=== PATIENT | female | born 1950 | race Caucasian/White ===

== ENCOUNTER 2017-12-17 17:24 | Emergency (ER) | payer OTHER ==
[~2017-12-17] VITALS: Ht 167.6 cm; Wt 129.6 kg
[2017-12-17 18:33] LABS: BASOPHILS % (AUTO) 0.6 % (0-1); EOSINOPHILS # (AUTO) 0.3 X10'3 (0-0.9); EOSINOPHILS % (AUTO) 4.9 % (0-6); HEMATOCRIT 23.5 % (35.0-45.0); HEMOGLOBIN 7.2 g/dl (12.0-16.0); LYMPHOCYTES # (AUTO) 1.4 X10'3 (1.1-4.8); MEAN CORPUSCULAR HEMOGLOBIN 19.1 PG (27.0-31.0); MEAN CORPUSCULAR HGB CONC 30.6 % (33.0-36.5); MEAN CORPUSCULAR VOLUME 62.4 FL (78-98); MEAN PLATELET VOLUME 8.4 FL (7.4-10.4); MONOCYTES # (AUTO) 0.4 X10'3 (0-0.9); NEUTROPHILS # (AUTO) 3.1 X10'3 (1.8-7.7); NEUTROPHILS % (AUTO) 59.5 % (42-75); PLATELET COUNT 96 X10'3 (140-440); RED BLOOD COUNT 3.76 X10'6 (4.20-5.60); RED CELL DISTRIBUTION WIDTH 20.2 % (11.5-14.5); WHITE BLOOD COUNT 5.3 X10'3 (4.5-11.0)
[2017-12-17 18:42] LABS: INR 1.1 INR; PARTIAL THROMBOPLASTIN TIME 24 SECONDS (22-32); PROTHROMBIN TIME 11.3 SECONDS (9.0-12.0)
[2017-12-17 18:46] LABS: ALANINE AMINOTRANSFERASE 27 U/L (12-78); ALBUMIN 3.2 G/DL (3.4-5.0); ALKALINE PHOSPHATASE 91 IU/L (46-116); ANION GAP 12 (8-16); ASPARTATE AMINO TRANSFERASE 27 U/L (10-37); BILIRUBIN,TOTAL 0.7 MG/DL (0.1-1.0); BLOOD UREA NITROGEN 25 MG/DL (7-18); BUN/CREATININE RATIO 21.9 (6.6-38.0); CALCIUM 8.6 MG/DL (8.5-10.1); CHLORIDE 103 MMOL/L (99-107); CREATININE 1.14 MG/DL (0.40-0.90); GLUCOSE 173 MG/DL (70-104); POTASSIUM 4.2 MMOL/L (3.5-5.1); SODIUM 138 MMOL/L (135-145); TOTAL CARBON DIOXIDE 23.1 MMOL/L (24-32); TOTAL PROTEIN 6.5 G/DL (6.4-8.2); eGFR 48 ML/MIN
[2017-12-17] MEDS ORDERED: ESTRADIOL VALERATE 20 MG/ML IM ONE (23:20)
[2017-12-17] MEDS ORDERED: normal saline 1000ml 1,000 ML IV ONE (23:25)
[2017-12-18] VITALS (10 sets, daily range): BP systolic 128–156; BP diastolic 44–103
[2017-12-18 00:40] LABS: OCCULT BLOOD STOOL NEGATIVE (Neg)
== END 2017-12-18 03:57 | disposition home or self-care (01) ==
LOC: ER 17:25
DX: D64.9 Anemia, unspecified (principal); N93.8 Other specified abnormal uterine and vaginal bleeding; I10 Essential (primary) hypertension; E78.5 Hyperlipidemia, unspecified; E11.9 Type 2 diabetes mellitus without complications; K21.9 Gastro-esophageal reflux disease without esophagitis; Z88.0 Allergy status to penicillin; Z88.2 Allergy status to sulfonamides
CPT/HCPCS: 36415; 71045; 80053; 82272; 85025; 85610; 85730; 86885; 86900; 86901; 86920; 93005; 99285; J7030; P9016; J1380

== ENCOUNTER 2018-08-11 15:21 | Inpatient (IN) | payer OTHER ==
[~2018-08-11] VITALS: Ht 167.6 cm; Wt 141.1 kg
[2018-08-11] MEDS ORDERED: normal saline 1000ML IV soln IV ONE (15:40)
[2018-08-11 16:13] LABS: BASOPHILS % (AUTO) 0.3 % (0-1); EOSINOPHILS # (AUTO) 0.2 X10'3 (0-0.9); EOSINOPHILS % (AUTO) 3.5 % (0-6); HEMATOCRIT 33.8 % (35.0-45.0); HEMOGLOBIN 11.1 g/dl (12.0-16.0); LYMPHOCYTES # (AUTO) 0.8 X10'3 (1.1-4.8); LYMPHOCYTES % (AUTO) 13.7 % (21-51); MEAN CORPUSCULAR HEMOGLOBIN 29.8 PG (27.0-31.0); MEAN CORPUSCULAR HGB CONC 32.8 % (33.0-36.5); MEAN CORPUSCULAR VOLUME 90.9 FL (78-98); MONOCYTES # (AUTO) 0.4 X10'3 (0-0.9); NEUTROPHILS # (AUTO) 4.4 X10'3 (1.8-7.7); NEUTROPHILS % (AUTO) 75.5 % (42-75); PLATELET COUNT 89 X10'3 (140-440); RED BLOOD COUNT 3.72 X10'6 (4.20-5.60); WHITE BLOOD COUNT 5.9 X10'3 (4.5-11.0)
[2018-08-11] MEDS ORDERED: morphine 4 MG/ML inj SYRINge IV ONE (16:25)
[2018-08-11 16:28] LABS: ALANINE AMINOTRANSFERASE 38 U/L (12-78); ALBUMIN 2.7 G/DL (3.4-5.0); ALBUMIN/GLOBULIN RATIO 0.7 (1.1-1.5); ALKALINE PHOSPHATASE 121 IU/L (46-116); ANION GAP 8 (8-16); ASPARTATE AMINO TRANSFERASE 37 U/L (10-37); BILIRUBIN,TOTAL 1.8 MG/DL (0.1-1.0); BLOOD UREA NITROGEN 15 MG/DL (7-18); BUN/CREATININE RATIO 16.5 (6.6-38.0); CALCIUM 8.7 MG/DL (8.5-10.1); CHLORIDE 102 MMOL/L (99-107); CREATININE 0.91 MG/DL (0.40-0.90); GLUCOSE 179 MG/DL (70-104); POTASSIUM 3.1 MMOL/L (3.5-5.1); SODIUM 140 MMOL/L (135-145); TOTAL CARBON DIOXIDE 30.5 MMOL/L (24-32); TOTAL PROTEIN 6.4 G/DL (6.4-8.2); eGFR 61 ML/MIN
[2018-08-11] MEDS ORDERED: CefTRIAXone 2gm/D5W 50ml 50 ML IV ONE (16:45)
--- NOTE | 2018-08-11 16:57 | NUR ---
SECOND BLOOD CULTURE DRAWN
[2018-08-11] MEDS ORDERED: potassium Cl oral solution 20 MEQ/15 ML PO ONE (17:00)
[2018-08-11 17:02] LABS: CLARITY,URINE SLIGHTLY CLOUDY (Clear); COLOR,URINE YELLOW (Yellow); GLUCOSE, URINE >=1000 mg/dl (Neg); KETONES,URINE NEGATIVE (Neg); LEUKOCYTE ESTERASE ,URINE TRACE (Neg); NITRITES, URINE NEGATIVE (Neg); OCCULT BLOOD,URINE SMALL (Neg); PROTEIN,URINE 30 mg/dl (Neg)
[2018-08-11] MEDS ORDERED: LOSA25TA96 PO (17:03)
[2018-08-11] MEDS ORDERED: SIMV20TA5 PO (17:03)
[2018-08-11] MEDS ORDERED: PANT40TA4 PO (17:03)
[2018-08-11] MEDS ORDERED: CARB15DR95 OP (17:03)
[2018-08-11] MEDS ORDERED: BUPR150T8 PO (17:03)
[2018-08-11] MEDS ORDERED: MELO-102 PO (17:03)
[2018-08-11] MEDS ORDERED: HYDR25TA4 PO (17:03)
[2018-08-11] MEDS ORDERED: ZOLP5TAB8 PO (17:03)
[2018-08-11] MEDS ORDERED: BUDE10.2 INH (17:03)
[2018-08-11] MEDS ORDERED: ARIP5TAB4 PO (17:03)
[2018-08-11] MEDS ORDERED: HALO15OI4 (17:03)
[2018-08-11] MEDS ORDERED: INSU100C4 SQ (17:03)
[2018-08-11] MEDS ORDERED: EMPA25TA PO (17:03)
[2018-08-11] MEDS ORDERED: LEVO75TA PO (17:03)
[2018-08-11] MEDS ORDERED: IPRA3AMP31 IH (17:03)
[2018-08-11] MEDS ORDERED: ATENOL PO (17:03)
[2018-08-11] MEDS ORDERED: METF750T2 PO ×2 (17:03)
[2018-08-11] MEDS ORDERED: CITA-278 PO (17:03)
[2018-08-11] MEDS ORDERED: INSU100V12 SQ (17:03)
[2018-08-11] MEDS ORDERED: ARIP10TA17 PO (17:03)
[2018-08-11] MEDS ORDERED: GABA-532 PO ×2 (17:03)
[2018-08-11] MEDS ORDERED: MONVCR VG (17:03)
[2018-08-11] MEDS ORDERED: TRAM50TA2 PO (17:03)
[2018-08-11 17:04] LABS: UA COLLECTION TYPE CLN CATCH MIDSTREAM
[2018-08-11 17:16] LABS: BACTERIA,URINE 2+ /HPF (Neg); RBC,URINE 0-2 /HPF (0-2); SQUAMOUS EPITHELIAL CELL,UR MANY /LPF (FEW); YEAST FEW /HPF (NEGATIVE)
[2018-08-11] MEDS ORDERED: magnesium hydroxide 30ml (MOM) UD suspension PO PRN (17:25)
[2018-08-11] MEDS ORDERED: dextrose 50%-water 50ml dispensing syringe IV PRN ×2 (17:25)
[2018-08-11] MEDS ORDERED: potassium Cl 40MEQ/NS 500ml 500 ML IV PRN ×2 (17:25)
[2018-08-11] MEDS ORDERED: HYDROcodone/acetaminophen 10/325mg tab PO PRN (17:25)
[2018-08-11] MEDS ORDERED: dextrose ORAL solution 15 GM/59 ML bottle PO PRN ×2 (17:25)
[2018-08-11] MEDS ORDERED: glucagon, human recombinant 1mg kit SUBCUT PRN (17:25)
[2018-08-11] MEDS ORDERED: magnesium 4gm in 100ml NS 100 ML IV PRN (17:25)
[2018-08-11] MEDS ORDERED: magnesium 2GM in 50ml NS 50 ML IV PRN (17:25)
[2018-08-11] MEDS ORDERED: MESSAGE TO PHARMACY PO ONE (17:25)
[2018-08-11] MEDS ORDERED: mag hydrox/Alum hydrox/simeth 30ml oral suspension PO PRN (17:25)
[2018-08-11] MEDS ORDERED: magnesium Cl slow-release 64mg tablet PO PRN (17:25)
[2018-08-11] MEDS ORDERED: potassium Cl 20 mEq SR tablet PO PRN (17:25)
[2018-08-11] MEDS ORDERED: acetaminophen 325mg tablet PO PRN ×2 (17:25)
[2018-08-11] MEDS ORDERED: ondansetron/PF 4mg/2ml inj IV PRN (17:25)
[2018-08-11] MEDS ORDERED: morphine 4 MG/ML inj SYRINge IV PRN ×2 (17:25)
[2018-08-11 18:00] LABS: HEMOGLOBIN A1C 6.4 % (4.5-6.2)
[2018-08-11] MEDS: lactobacillus rhamnosus 10,000 MMU CELLS/CAPSULE PO SCH (20:16)
[2018-08-11] MEDS ORDERED: traMADol 50MG tablet PO PRN (20:30)
[2018-08-11] MEDS ORDERED: ipratropium/albuterol 3ml nebule NEB PRN (20:35)
[2018-08-11 20:45] VITALS: BP 148/57
[2018-08-11] MEDS ORDERED: CARBOXYMETHYLCELLULOSE SODIUM 15 ML DROPS EACHEYE SCH (21:00)
[2018-08-11 23:00] VITALS: BP_SYST 114; BP_SYST 169; BP_DIAS 45; BP_DIAS 77
[2018-08-11] MEDS: ipratropium/albuterol 3ml nebule NEB SCH (23:00)
[2018-08-11] MEDS: atorvastatin 10mg tablet PO SCH (23:28)
[2018-08-11] MEDS: gabapentin 300mg capsule PO SCH (23:29)
[2018-08-11] MEDS: insulin glargine (Lantus) pen - multi-dose SQ SCH (23:30)
[2018-08-11] MEDS: miconazole nitrate 2% 45gm VAG cream VG SCH (23:31)
[2018-08-12] MEDS: zolpidem 5mg tablet PO PRN ×2 (00:44→20:55)
[2018-08-12] MEDS: HYDROcodone/acetaminophen 5mg/325mg tablet PO PRN ×2 (00:46→20:55)
[2018-08-12 03:00] VITALS: BP 114/45
[2018-08-12 04:00] LABS: BASOPHILS % (AUTO) 0.5 % (0-1); EOSINOPHILS # (AUTO) 0.3 X10'3 (0-0.9); EOSINOPHILS % (AUTO) 5.2 % (0-6); HEMATOCRIT 32.7 % (35.0-45.0); HEMOGLOBIN 10.5 g/dl (12.0-16.0); LYMPHOCYTES # (AUTO) 1.1 X10'3 (1.1-4.8); LYMPHOCYTES % (AUTO) 20.6 % (21-51); MEAN CORPUSCULAR HEMOGLOBIN 29.1 PG (27.0-31.0); MEAN CORPUSCULAR HGB CONC 32.3 % (33.0-36.5); MEAN CORPUSCULAR VOLUME 90.3 FL (78-98); MEAN PLATELET VOLUME 9.1 FL (7.4-10.4); MONOCYTES # (AUTO) 0.5 X10'3 (0-0.9); MONOCYTES % (AUTO) 9.5 % (2-12); NEUTROPHILS # (AUTO) 3.5 X10'3 (1.8-7.7); NEUTROPHILS % (AUTO) 64.2 % (42-75); PLATELET COUNT 92 X10'3 (140-440); RED BLOOD COUNT 3.62 X10'6 (4.20-5.60); RED CELL DISTRIBUTION WIDTH 18.5 % (11.5-14.5); WHITE BLOOD COUNT 5.4 X10'3 (4.5-11.0)
[2018-08-12 04:11] LABS: ALBUMIN 2.5 G/DL (3.4-5.0); ANION GAP 9 (8-16); BLOOD UREA NITROGEN 14 MG/DL (7-18); BUN/CREATININE RATIO 17.5 (6.6-38.0); CALCIUM 8.2 MG/DL (8.5-10.1); CHLORIDE 104 MMOL/L (99-107); GLUCOSE 114 MG/DL (70-104); MAGNESIUM 1.6 MG/DL (1.5-2.4); POTASSIUM 3.3 MMOL/L (3.5-5.1); SODIUM 139 MMOL/L (135-145); TOTAL CARBON DIOXIDE 26.4 MMOL/L (24-32); eGFR 71 ML/MIN
[2018-08-12 06:00] VITALS: BP 167/70
[2018-08-12] MEDS: ipratropium/albuterol 3ml nebule NEB SCH ×5 (07:00→23:00)
[2018-08-12] MEDS: CefTRIAXone 2gm/D5W 50ml 50 ML IV SCH (07:54)
[2018-08-12] MEDS: enoxaparin 40mg/0.4ml syringe SQ SCH (07:55)
[2018-08-12] MEDS: gabapentin 300mg capsule PO SCH ×2 (07:56→20:51)
[2018-08-12] MEDS: lactobacillus rhamnosus 10,000 MMU CELLS/CAPSULE PO SCH ×2 (07:56→20:50)
[2018-08-12] MEDS: citalopram 20mg tablet PO SCH (07:56)
[2018-08-12] MEDS: pantoprazole 40mg Tablet.DR PO SCH ×2 (07:56→20:51)
[2018-08-12] MEDS: levoTHYROXINE 75mcg tablet PO SCH (07:56)
[2018-08-12] MEDS: aripiprazole 5mg tablet PO SCH (07:57)
[2018-08-12] MEDS: furosemide 20 MG/2 ML vial IV SCH ×2 (07:57→20:51)
[2018-08-12] MEDS: buPROPion SR 150mg tablet PO SCH ×2 (07:57→20:50)
[2018-08-12] MEDS: losartan 50mg tablet PO SCH (07:57)
[2018-08-12] MEDS: polyvinyl alcohol ophthalmic drops 15ml bottle EACHEYE SCH ×4 (07:58→20:51)
[2018-08-12] MEDS ORDERED: non-formulary drug (Aripiprazole 1 TAB) PO SCH (08:00)
[2018-08-12] MEDS: potassium Cl 20 mEq SR tablet PO PRN ×3 (08:14→17:40)
[2018-08-12] MEDS: K and/or MAG REPLACEMENT MC SCH (08:17)
[2018-08-12] MEDS: BUDESONIDE 0.25 MG/2 ML AMPUL.NEB IH SCH ×2 (08:34→20:50)
[2018-08-12 11:00] VITALS: BP 170/67
[2018-08-12] MEDS: insulin Lispro (HumaLOG) vial - multi-dose SQ SCH ×2 (14:25→19:17)
[2018-08-12 15:00] VITALS: BP 142/49
[2018-08-12 19:00] VITALS: BP 150/58
[2018-08-12] MEDS: atorvastatin 10mg tablet PO SCH (20:51)
[2018-08-12] MEDS: miconazole nitrate 2% 45gm VAG cream VG SCH (21:00)
[2018-08-12] MEDS: insulin glargine (Lantus) pen - multi-dose SQ SCH (21:04)
[2018-08-12 23:00] VITALS: BP 125/59
[2018-08-13 03:00] VITALS: BP 169/62
[2018-08-13] MEDS: ipratropium/albuterol 3ml nebule NEB SCH ×6 (03:00→23:00)
[2018-08-13 06:00] VITALS: BP 149/69
[2018-08-13 06:11] LABS: BASOPHILS % (AUTO) 0.3 % (0-1); EOSINOPHILS # (AUTO) 0.2 X10'3 (0-0.9); EOSINOPHILS % (AUTO) 5.5 % (0-6); HEMATOCRIT 31.4 % (35.0-45.0); HEMOGLOBIN 10.5 g/dl (12.0-16.0); LYMPHOCYTES % (AUTO) 24.4 % (21-51); MEAN CORPUSCULAR HGB CONC 33.3 % (33.0-36.5); MEAN CORPUSCULAR VOLUME 90.1 FL (78-98); MEAN PLATELET VOLUME 8.7 FL (7.4-10.4); MONOCYTES # (AUTO) 0.4 X10'3 (0-0.9); MONOCYTES % (AUTO) 10.1 % (2-12); NEUTROPHILS # (AUTO) 2.5 X10'3 (1.8-7.7); NEUTROPHILS % (AUTO) 59.7 % (42-75); PLATELET COUNT 91 X10'3 (140-440); RED BLOOD COUNT 3.48 X10'6 (4.20-5.60); RED CELL DISTRIBUTION WIDTH 18.7 % (11.5-14.5); WHITE BLOOD COUNT 4.2 X10'3 (4.5-11.0)
[2018-08-13 06:24] LABS: ALBUMIN 2.4 G/DL (3.4-5.0); ANION GAP 9 (8-16); BLOOD UREA NITROGEN 14 MG/DL (7-18); BUN/CREATININE RATIO 17.5 (6.6-38.0); CALCIUM 8.2 MG/DL (8.5-10.1); CHLORIDE 104 MMOL/L (99-107); GLUCOSE 153 MG/DL (70-104); MAGNESIUM 1.8 MG/DL (1.5-2.4); POTASSIUM 3.3 MMOL/L (3.5-5.1); SODIUM 141 MMOL/L (135-145); eGFR 71 ML/MIN
[2018-08-13] MEDS: lactobacillus rhamnosus 10,000 MMU CELLS/CAPSULE PO SCH ×2 (07:29→21:12)
[2018-08-13] MEDS: losartan 50mg tablet PO SCH (07:29)
[2018-08-13] MEDS: gabapentin 300mg capsule PO SCH ×2 (07:29→21:13)
[2018-08-13] MEDS: aripiprazole 5mg tablet PO SCH (07:29)
[2018-08-13] MEDS: CefTRIAXone 2gm/D5W 50ml 50 ML IV SCH (07:29)
[2018-08-13] MEDS: pantoprazole 40mg Tablet.DR PO SCH ×2 (07:29→21:12)
[2018-08-13] MEDS: polyvinyl alcohol ophthalmic drops 15ml bottle EACHEYE SCH ×4 (07:30→21:13)
[2018-08-13] MEDS: citalopram 20mg tablet PO SCH (07:30)
[2018-08-13] MEDS: furosemide 20 MG/2 ML vial IV SCH ×2 (07:30→21:12)
[2018-08-13] MEDS: enoxaparin 40mg/0.4ml syringe SQ SCH (07:30)
[2018-08-13] MEDS: levoTHYROXINE 75mcg tablet PO SCH (07:30)
[2018-08-13] MEDS: buPROPion SR 150mg tablet PO SCH ×2 (07:30→21:12)
[2018-08-13] MEDS: potassium Cl 20 mEq SR tablet PO PRN ×3 (07:33→21:26)
[2018-08-13] MEDS: K and/or MAG REPLACEMENT MC SCH (08:00)
[2018-08-13] MEDS: BUDESONIDE 0.25 MG/2 ML AMPUL.NEB IH SCH ×2 (09:00→19:55)
[2018-08-13] MEDS: insulin Lispro (HumaLOG) vial - multi-dose SQ SCH ×3 (09:29→20:05)
[2018-08-13 11:00] VITALS: BP 143/52
[2018-08-13 15:00] VITALS: BP 152/62
[2018-08-13 19:00] VITALS: BP 146/58
[2018-08-13] MEDS: atorvastatin 10mg tablet PO SCH (21:12)
[2018-08-13] MEDS: miconazole nitrate 2% 45gm VAG cream VG SCH (21:15)
[2018-08-13] MEDS: zolpidem 5mg tablet PO PRN (21:26)
[2018-08-13] MEDS: HYDROcodone/acetaminophen 5mg/325mg tablet PO PRN (21:26)
[2018-08-13] MEDS: insulin glargine (Lantus) pen - multi-dose SQ SCH (22:46)
[2018-08-13 23:00] VITALS: BP 120/39
[2018-08-14 03:00] VITALS: BP 128/50
[2018-08-14] MEDS: ipratropium/albuterol 3ml nebule NEB SCH ×5 (03:00→23:00)
[2018-08-14 06:00] VITALS: BP 134/45
[2018-08-14 06:12] LABS: BASOPHILS % (AUTO) 0.3 % (0-1); EOSINOPHILS # (AUTO) 0.2 X10'3 (0-0.9); EOSINOPHILS % (AUTO) 4.4 % (0-6); HEMATOCRIT 31.2 % (35.0-45.0); HEMOGLOBIN 10.4 g/dl (12.0-16.0); LYMPHOCYTES # (AUTO) 0.9 X10'3 (1.1-4.8); LYMPHOCYTES % (AUTO) 21.8 % (21-51); MEAN CORPUSCULAR HEMOGLOBIN 30.1 PG (27.0-31.0); MEAN CORPUSCULAR HGB CONC 33.5 % (33.0-36.5); MEAN CORPUSCULAR VOLUME 89.8 FL (78-98); MEAN PLATELET VOLUME 8.9 FL (7.4-10.4); MONOCYTES # (AUTO) 0.4 X10'3 (0-0.9); MONOCYTES % (AUTO) 8.7 % (2-12); NEUTROPHILS # (AUTO) 2.7 X10'3 (1.8-7.7); NEUTROPHILS % (AUTO) 64.8 % (42-75); PLATELET COUNT 90 X10'3 (140-440); RED BLOOD COUNT 3.47 X10'6 (4.20-5.60); WHITE BLOOD COUNT 4.1 X10'3 (4.5-11.0)
[2018-08-14 06:23] LABS: ALBUMIN 2.4 G/DL (3.4-5.0); ANION GAP 8 (8-16); BLOOD UREA NITROGEN 13 MG/DL (7-18); BUN/CREATININE RATIO 16.9 (6.6-38.0); CALCIUM 8.2 MG/DL (8.5-10.1); CHLORIDE 105 MMOL/L (99-107); CREATININE 0.77 MG/DL (0.40-0.90); GLUCOSE 147 MG/DL (70-104); MAGNESIUM 1.7 MG/DL (1.5-2.4); POTASSIUM 3.7 MMOL/L (3.5-5.1); SODIUM 141 MMOL/L (135-145); TOTAL CARBON DIOXIDE 28.4 MMOL/L (24-32); eGFR 75 ML/MIN
--- NOTE | 2018-08-14 06:34 | NUR ---
Patient in room PCU 3018. I have received report from ERICA LOCKE and had the opportunity to ask questions and assume patient care.
--- NOTE | 2018-08-14 06:35 | NUR ---
Pt shift report given to CHUCKY Walters. pt stable at change of shift.
[2018-08-14] MEDS: K and/or MAG REPLACEMENT MC SCH (08:00)
[2018-08-14] MEDS: CefTRIAXone 2gm/D5W 50ml 50 ML IV SCH (08:00)
[2018-08-14] MEDS: enoxaparin 40mg/0.4ml syringe SQ SCH (08:00)
[2018-08-14] MEDS: buPROPion SR 150mg tablet PO SCH ×2 (09:32→20:41)
[2018-08-14] MEDS: losartan 50mg tablet PO SCH (09:33)
[2018-08-14] MEDS: aripiprazole 5mg tablet PO SCH (09:33)
[2018-08-14] MEDS: levoTHYROXINE 75mcg tablet PO SCH (09:33)
[2018-08-14] MEDS: lactobacillus rhamnosus 10,000 MMU CELLS/CAPSULE PO SCH ×2 (09:34→20:41)
[2018-08-14] MEDS: pantoprazole 40mg Tablet.DR PO SCH ×2 (09:34→20:41)
[2018-08-14] MEDS: furosemide 20 MG/2 ML vial IV SCH ×2 (09:34→20:41)
[2018-08-14] MEDS: gabapentin 300mg capsule PO SCH ×2 (09:34→20:41)
[2018-08-14] MEDS: citalopram 20mg tablet PO SCH (09:35)
[2018-08-14] MEDS: polyvinyl alcohol ophthalmic drops 15ml bottle EACHEYE SCH ×4 (09:37→20:40)
[2018-08-14] MEDS: insulin Lispro (HumaLOG) vial - multi-dose SQ SCH ×3 (09:47→18:44)
[2018-08-14] MEDS: HYDROcodone/acetaminophen 5mg/325mg tablet PO PRN ×2 (10:09→22:02)
[2018-08-14] MEDS: BUDESONIDE 0.25 MG/2 ML AMPUL.NEB IH SCH ×2 (10:31→21:00)
[2018-08-14 11:00] VITALS: BP 104/59
[2018-08-14 15:00] VITALS: BP 151/49
--- NOTE | 2018-08-14 15:38 | NUR ---
Paged hospitalist, "Selena [phone][phone] Wish to make him aware that patient has not brought in home medications and therefore nurses have been charting not given. Requesting to discontinue home meds since they will not be bringing them in.
--- NOTE | 2018-08-14 15:55 | NUR ---
Received call from hospitalist, received orders to go ahead and discontinue the home meds that have not been brought in.
--- NOTE | 2018-08-14 16:10 | NUR ---
Patient requests to speak to case management, paged them at this time.
--- NOTE | 2018-08-14 16:23 | NUR ---
Case management spoke to patients re: discharge plans. Patient and decided that the rehab in [place] is too far away and would rather her come home than go that far away. Plans to send her home for discharge tomorrow.
--- NOTE | 2018-08-14 18:17 | NUR ---
Problems reprioritized. Patient report given, questions answered & plan of care reviewed with Deep RN.
[2018-08-14 19:00] VITALS: BP 143/66
[2018-08-14] MEDS: zolpidem 5mg tablet PO PRN (20:41)
[2018-08-14] MEDS: atorvastatin 10mg tablet PO SCH (20:41)
[2018-08-14] MEDS: miconazole nitrate 2% 45gm VAG cream VG SCH (20:41)
[2018-08-14] MEDS: insulin glargine (Lantus) pen - multi-dose SQ SCH (22:11)
[2018-08-14 23:00] VITALS: BP 127/39
[2018-08-15 03:00] VITALS: BP 129/40
[2018-08-15] MEDS: ipratropium/albuterol 3ml nebule NEB SCH ×3 (03:00→11:44)
--- NOTE | 2018-08-15 03:00 | NUR ---
Pt found on floor, states she slid out of bed while attempting to transfer to bed side commode unattended. No injuries noted. vitals within normal limits, skin intact. pt denies head injury, no s/s of trauma to head noted. Reinforced education in regards to hitting call light and fall risks. Dr. Jony REYES notified and made aware of fall, will cont to monitor.
[2018-08-15 06:00] VITALS: BP 141/49
--- NOTE | 2018-08-15 06:48 | NUR ---
Patient in room PCU 3018. I have received report from CHUCKY Moreira and had the opportunity to ask questions and assume patient care.
--- NOTE | 2018-08-15 06:54 | NUR ---
Problems reprioritized. Patient report given, questions answered & plan of care reviewed with CHUCKY Lieberman.
[2018-08-15] MEDS: K and/or MAG REPLACEMENT MC SCH (08:00)
[2018-08-15] MEDS: enoxaparin 40mg/0.4ml syringe SQ SCH (08:00)
[2018-08-15] MEDS: buPROPion SR 150mg tablet PO SCH (08:22)
[2018-08-15] MEDS: CefTRIAXone 2gm/D5W 50ml 50 ML IV SCH (08:22)
[2018-08-15] MEDS: citalopram 20mg tablet PO SCH (08:23)
[2018-08-15] MEDS: furosemide 20 MG/2 ML vial IV SCH (08:23)
[2018-08-15] MEDS: polyvinyl alcohol ophthalmic drops 15ml bottle EACHEYE SCH (08:23)
[2018-08-15] MEDS: aripiprazole 5mg tablet PO SCH (08:23)
[2018-08-15] MEDS: pantoprazole 40mg Tablet.DR PO SCH (08:26)
[2018-08-15] MEDS: gabapentin 300mg capsule PO SCH (08:27)
[2018-08-15] MEDS: lactobacillus rhamnosus 10,000 MMU CELLS/CAPSULE PO SCH (08:27)
[2018-08-15] MEDS: levoTHYROXINE 75mcg tablet PO SCH (08:27)
[2018-08-15] MEDS: losartan 50mg tablet PO SCH (08:27)
[2018-08-15] MEDS: insulin Lispro (HumaLOG) vial - multi-dose SQ SCH (08:44)
[2018-08-15] MEDS ORDERED: FURO-149 PO (11:07)
[2018-08-15] MEDS ORDERED: CEFD300C3 PO (11:07)
[2018-08-15] MEDS: BUDESONIDE 0.25 MG/2 ML AMPUL.NEB IH SCH (11:44)
--- NOTE | 2018-08-15 12:20 | NUR ---
Pt with [facility] only [facility]. DC home with spouse and all belongings.
== END 2018-08-15 12:24 | disposition home health service (06) | DRG 871 ==
LOC: ER 15:22 → ED HOLD 17:21 → PCU 3S 20:45 → CMPBEDREQ 20:53
PROVIDERS: ADMIT Hospitalist; ATTEND Hospitalist
DX: A41.9 Sepsis, unspecified organism (principal); E43 Unspecified severe protein-calorie malnutrition; N39.0 Urinary tract infection, site not specified; L03.116 Cellulitis of left lower limb; Z68.43 Body mass index [BMI] 50.0-59.9, adult; L03.115 Cellulitis of right lower limb; I50.32 Chronic diastolic (congestive) heart failure; E11.65 Type 2 diabetes mellitus with hyperglycemia; E78.5 Hyperlipidemia, unspecified; E66.01 Morbid (severe) obesity due to excess calories; E87.6 Hypokalemia; I11.0 Hypertensive heart disease with heart failure; J45.909 Unspecified asthma, uncomplicated; R29.6 Repeated falls; W18.39XA Other fall on same level, initial encounter; Z88.0 Allergy status to penicillin; Z88.2 Allergy status to sulfonamides; Z88.8 Allergy status to other drugs, medicaments and biological substances; Z79.4 Long term (current) use of insulin; Z79.890 Hormone replacement therapy; Z79.899 Other long term (current) drug therapy; Y93.89 Activity, other specified; Y92.89 Other specified places as the place of occurrence of the external cause; Y99.8 Other external cause status
CPT/HCPCS: 36415; 71045; 80048; 80053; 81001; 82948; 83036; 83605; 83735; 83880; 84443; 84484; 85025; 87040; 87070; 87502; 87503; 93005; 93306; 94640; 94760; 96361; 96374; 96375; 97116; 97161; 97530; 99285; G0378; J0696; J1650; J1815; J1940; J2270

== ENCOUNTER 2018-09-20 13:16 | Emergency (ER) | payer OTHER ==
[~2018-09-20] VITALS: Ht 165.1 cm; Wt 122.7 kg
[~2018-09-20 13:16] MED LIST: ARIP10TA17 PO; ARIP5TAB4 PO; BUPR150T8 PO; CARB15DR95 OP; CITA-278 PO; EMPA25TA PO; FURO-149 PO; GABA-532 PO; HALO15OI4; LEVO75TA PO; LOSA25TA96 PO; MELO-102 PO; MONVCR VG; PANT40TA4 PO; SIMV20TA5 PO; TRAM50TA2 PO; ZOLP5TAB8 PO
[2018-09-20] MEDS ORDERED: morphine 4 MG/ML inj SYRINge IV ONE (15:00)
[2018-09-20] MEDS ORDERED: ondansetron/PF 4mg/2ml inj IV ONE (15:00)
[2018-09-20 15:38] LABS: ALANINE AMINOTRANSFERASE 33 U/L (12-78); ALBUMIN 2.6 G/DL (3.4-5.0); ALBUMIN/GLOBULIN RATIO 0.7 (1.1-1.5); ALKALINE PHOSPHATASE 207 IU/L (46-116); ANION GAP 7 (8-16); ASPARTATE AMINO TRANSFERASE 38 U/L (10-37); BILIRUBIN,TOTAL 1.2 MG/DL (0.1-1.0); BLOOD UREA NITROGEN 14 MG/DL (7-18); BUN/CREATININE RATIO 14.9 (6.6-38.0); CALCIUM 8.4 MG/DL (8.5-10.1); CHLORIDE 104 MMOL/L (99-107); CREATININE 0.94 MG/DL (0.40-0.90); GLUCOSE 100 MG/DL (70-104); POTASSIUM 3.5 MMOL/L (3.5-5.1); SODIUM 140 MMOL/L (135-145); TOTAL CARBON DIOXIDE 28.6 MMOL/L (24-32); TOTAL PROTEIN 6.5 G/DL (6.4-8.2); eGFR 59 ML/MIN
[2018-09-20 15:58] LABS: BASOPHILS % (AUTO) 0.3 % (0-1); EOSINOPHILS # (AUTO) 0.2 X10'3 (0-0.9); EOSINOPHILS % (AUTO) 2.3 % (0-6); HEMATOCRIT 33.4 % (35.0-45.0); LYMPHOCYTES # (AUTO) 0.8 X10'3 (1.1-4.8); LYMPHOCYTES % (AUTO) 12.4 % (21-51); MEAN CORPUSCULAR HEMOGLOBIN 29.2 PG (27.0-31.0); MEAN CORPUSCULAR HGB CONC 32.9 g/dL (33.0-36.5); MEAN CORPUSCULAR VOLUME 88.6 FL (78-98); MEAN PLATELET VOLUME 8.8 FL (7.4-10.4); MONOCYTES # (AUTO) 0.6 X10'3 (0-0.9); MONOCYTES % (AUTO) 9.1 % (2-12); NEUTROPHILS # (AUTO) 5.2 X10'3 (1.8-7.7); NEUTROPHILS % (AUTO) 75.9 % (42-75); PLATELET COUNT 96 X10'3 (140-440); RED BLOOD COUNT 3.77 X10'6 (4.20-5.60); RED CELL DISTRIBUTION WIDTH 18.1 % (11.5-14.5); WHITE BLOOD COUNT 6.8 X10'3 (4.5-11.0)
[2018-09-20 16:33] LABS: TOTAL CELLS COUNTED 100
[2018-09-20 16:34] LABS: ANISOCYTOSIS 2+; LARGE PLATELETS FEW; PLATELET ESTIMATE DECREASED; POLYCHROMASIA FEW
[2018-09-20] MEDS ORDERED: CefTRIAXone 2gm/D5W 50ml 50 ML IV ONE (16:35)
[2018-09-20] MEDS ORDERED: HYDR-4353 PO (16:39)
[2018-09-20] MEDS ORDERED: CEPH500C5 PO (16:39)
[2018-09-20 16:48] VITALS: BP 126/51
== END 2018-09-20 17:06 | disposition home or self-care (01) ==
LOC: ER 13:16
DX: L03.116 Cellulitis of left lower limb (principal)
CPT/HCPCS: 36415; 71045; 80053; 82948; 83605; 84145; 85025; 87040; 93005; 93971; 96365; 96375; 99284; J0696; J2270; J2405

== ENCOUNTER 2018-09-29 14:27 | Inpatient (IN) | payer OTHER | END 2018-10-02 14:21 | disposition home or self-care (01) | LOC: ER 14:27 → ED HOLD 18:25 → SUR 3N 22:51 | DX: L03.116 Cellulitis of left lower limb (principal); I50.33 Acute on chronic diastolic (congestive) heart failure; I50.30 Unspecified diastolic (congestive) heart failure; I11.0 Hypertensive heart disease with heart failure; E11.42 Type 2 diabetes mellitus with diabetic polyneuropathy; E03.9 Hypothyroidism, unspecified; E78.5 Hyperlipidemia, unspecified; E61.1 Iron deficiency; F32.9 Major depressive disorder, single episode, unspecified; E66.01 Morbid (severe) obesity due to excess calories ==